=== PATIENT | male | born 1990 | race Caucasian/White ===

== ENCOUNTER 2020-01-18 13:07 | Emergency (ER) | payer BC, SELFPAY ==
[2020-01-18 13:14] VITALS: BP 141/96; PULSE 98; RESP 16; TEMP 37.2; O2SAT 96; BMI 38.7
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
[2020-01-18 14:42] VITALS: O2SAT 98
[2020-01-18] MEDS: predniSONE 20 mg Tablet 40 MG PO (15:31)
[2020-01-18] MEDS: valACYclovir 1,000 mg Tablet 1000 MG PO (15:33)
[2020-01-18 15:38] VITALS: BP 127/83; PULSE 83; RESP 16; O2SAT 99
== END 2020-01-18 15:38 | disposition home or self-care (01) ==
LOC: ER 14:52
PROVIDERS: Emergency Provider Emergency Medicine; PCP Nurse Practitioner Family
DX: G51.0 Bell's palsy (principal)
CPT/HCPCS: 12345; 99282; 99283; J7512

== ENCOUNTER 2022-01-30 22:09 | Inpatient (IN) | payer OTHER, SELFPAY ==
[2022-01-30 22:13] VITALS: BP 134/81; PULSE 76; RESP 16; TEMP 36.7; O2SAT 94; BMI 43.0
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
[2022-01-30 22:36] LABS: Basophils # 0.1 10^3/uL (0.0-0.1); Basophils % 0.9 %; Eosinophils # 0.1 10^3/uL (0.0-0.8); Eosinophils % 1.5 %; Hematocrit 47.7 % (42.0-52.0); Lymphocytes # 2.4 10^3/uL (0.8-4.8); Lymphocytes % 26.6 %; Mean Corpuscular HGB Conc 33.5 g/dL (30.0-36.0); Mean Corpuscular Hemoglobin 30.8 pg (28.0-34.0); Mean Corpuscular Volume 91.9 fl (80-94); Mean Platelet Volume 11.6 fL (7.4-10.4); Monocytes # 0.8 10^3/uL (0.2-0.9); Monocytes % 8.8 %; Neutrophils # 5.64 10^3/uL (1.8-7.7); Neutrophils % 62.1 %; Nucleated Red Blood Cells % 0 %; Platelet Count 292 10^3/cmm (130-400); Red Blood Count 5.19 10^6/uL (4.1-5.3); Red Cell Distribution Width 12.8 % (12.1-15.1); White Blood Count 9.1 10^3/uL (4.0-10.0)
[2022-01-30 22:58] LABS: Acetaminophen < 5.0 ug/mL (10-30); Alanine Aminotransferase 107 U/L (0-41); Albumin Level 4.6 g/dL (3.5-5.2); Alcohol Level < 10 mg/dL (0-10); Alkaline Phosphatase 80 IU/L (40-130); Anion Gap 17.1 (5-19); Aspartate Amino Transferase 50 U/L (0-40); Blood Urea Nitrogen 12 mg/dL (6-20); Calcium 9.8 mg/dL (8.5-10.5); Carbon Dioxide 22 mmol/L (22-29); Chloride 105 mmol/L (98-107); Globulin 2.8 g/dL (1.3-4.6); Glomerular Filtration Rate 97.8 mL/min (90-130); Glucose 157 mg/dL (65-115); Osmolality Calculated 293 mOsm/kg (285-295); Potassium 4.1 mmol/L (3.5-5.1); Salicylate < 0.3 mg/dL (3-10); Sodium 140 mmol/L (136-145); Total Bilirubin 0.3 mg/dL (0.15-1.2); Total Protein 7.4 g/dL (6.6-8.7)
[2022-01-30 23:39] LABS: Add Urine Microscopic? NO; Charge for UA Resulting for Rev
[2022-01-30 23:40] LABS: Bilirubin Urine 1+ (Negative); Blood Urine Neg (Negative); Glucose Urine UA Norm (Normal); Ketones Urine Negative (Negative); Leukocyte Esterase Urine Negative (Negative); Nitrate Urine Negative (Negative); Protein Urine Neg (Negative); Urine Appearance Clear (CLEAR); Urine Color Yellow (Yellow); Urobilinogen Urine 4 mg/dL (Negative); pH Urine 5 (5-7)
[2022-01-31 00:05] VITALS: BP 141/69; PULSE 87; RESP 18; TEMP 36.8; O2SAT 99
[2022-01-31 00:06] LABS: Amphetamines Screen Urine Negative (Negative); Barbiturates Screen Urine Negative (Negative); Benzodiazepines Screen Urine Negative (Negative); Cocaine Screen Urine Negative (Negative); Opiate Screen Urine Negative (Negative); PCP Screen Urine Negative (Negative); THC Screen Urine Negative (Negative)
[2022-01-31 00:20] VITALS: BP 154/92; PULSE 89; RESP 18; O2SAT 98
[2022-01-31] MEDS: prazosin 1 mg Capsule 2 MG PO ×2 (02:10→20:50)
[2022-01-31] MEDS: gabapentin 400 mg Capsule PO ×2 (02:10→20:51)
[2022-01-31 06:00] VITALS: BP 106/57; PULSE 93; RESP 20; TEMP 36.4; O2SAT 96
[2022-01-31] MEDS: duloxetine 30 mg Capsule PO ×2 (09:09→20:52)
[2022-01-31] MEDS: lamoTRIgine 100 mg Tablet PO ×2 (09:09→20:51)
[2022-01-31] MEDS: famotidine 20 mg Tablet PO ×2 (09:09→20:52)
--- NOTE | 2022-01-31 09:10 | PC.NURSE ---
refused scheduled Inderal pt stated he takes it once a day at noon
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
--- NOTE | 2022-01-31 11:21 | NPU.GN ---
[facility] Unit Group Topic:Positive Coping Skills General Mood of Group:Eduardo did not attend group today.
[2022-01-31 14:00] VITALS: BP 120/74; PULSE 72; RESP 16; TEMP 36.9; O2SAT 98
[2022-01-31] MEDS: gabapentin 400 mg Capsule 800 MG PO ×2 (15:07→20:51)
[2022-01-31] MEDS: propranolol 40 mg Tablet PO (20:51)
[2022-01-31 22:00] VITALS: BP 141/96; PULSE 74; RESP 19; TEMP 36.5; O2SAT 99
[2022-02-01 06:00] VITALS: BP 135/83; PULSE 66; RESP 18; TEMP 36.6; O2SAT 97
[2022-02-01] MEDS: gabapentin 400 mg Capsule 800 MG PO ×3 (09:26→20:43)
[2022-02-01] MEDS: famotidine 20 mg Tablet PO ×2 (09:26→20:44)
[2022-02-01] MEDS: propranolol 40 mg Tablet PO ×2 (09:26→20:44)
[2022-02-01] MEDS: duloxetine 30 mg Capsule PO ×2 (09:26→20:44)
[2022-02-01] MEDS: lamoTRIgine 100 mg Tablet PO ×2 (09:26→21:19)
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
[2022-02-01 14:00] VITALS: BP 104/61; PULSE 83; RESP 18; TEMP 36.7; O2SAT 98
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
[2022-02-01] MEDS: gabapentin 400 mg Capsule PO (20:43)
[2022-02-01] MEDS: prazosin 1 mg Capsule 2 MG PO (20:44)
[2022-02-01 21:37] VITALS: BP 124/77; PULSE 65; RESP 20; TEMP 36.7; O2SAT 94
[2022-02-02 06:00] VITALS: BP 110/63; PULSE 94; RESP 18; TEMP 36.7; O2SAT 97
[2022-02-02] MEDS: famotidine 20 mg Tablet PO ×2 (09:04→20:11)
[2022-02-02] MEDS: lamoTRIgine 100 mg Tablet PO ×2 (09:04→20:11)
[2022-02-02] MEDS: propranolol 40 mg Tablet PO ×2 (09:04→20:11)
[2022-02-02] MEDS: gabapentin 400 mg Capsule 800 MG PO ×3 (09:04→20:11)
[2022-02-02] MEDS: duloxetine 30 mg Capsule PO ×2 (09:04→20:11)
--- NOTE | 2022-02-02 12:13 | NPU.GN ---
[facility] Group Topic:Whine Barrel Activity General Mood of Group: Eduardo did attend group today. He was social and seems stable. His hygiene is good.
[2022-02-02 14:00] VITALS: BP 151/62; PULSE 60; RESP 18; TEMP 36.7; O2SAT 99
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
[2022-02-02] MEDS: gabapentin 400 mg Capsule PO (20:11)
[2022-02-02] MEDS: prazosin 1 mg Capsule 2 MG PO (20:12)
[2022-02-02 20:29] VITALS: BP 122/77; PULSE 57; RESP 20; O2SAT 96
[2022-02-03 06:00] VITALS: BP 109/67; PULSE 61; RESP 16; TEMP 36.4
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
[2022-02-03 08:31] VITALS: BP 109/67; PULSE 61; RESP 16; TEMP 36.4; O2SAT 96
--- NOTE | 2022-02-03 08:35 | PC.NURSE ---
Discharge note Patient discharge instructions given per physician orders. patient verbalized understanding. Patient to strip picker at npu.
[2022-02-03] MEDS: famotidine 20 mg Tablet PO (08:48)
[2022-02-03] MEDS: lamoTRIgine 100 mg Tablet PO (08:48)
[2022-02-03] MEDS: duloxetine 30 mg Capsule PO (08:48)
[2022-02-03] MEDS: propranolol 40 mg Tablet PO (08:48)
[2022-02-03] MEDS: gabapentin 400 mg Capsule 800 MG PO (08:48)
[2022-02-03 08:52] VITALS: BP 109/67; PULSE 61; RESP 16; TEMP 36.4; O2SAT 96
== END 2022-02-03 08:51 | disposition home or self-care (01) | DRG 882 ==
LOC: ER 22:35 → NP 01-31 02:34
PROVIDERS: Admitting Provider Psychiatry & Neurology Psychiatry; Emergency Provider Physician Assistant; PCP Nurse Practitioner Family; Visit Provider Psychiatry & Neurology Psychiatry
DX: F43.10 Post-traumatic stress disorder, unspecified (principal); R45.851 Suicidal ideations; X95.9XXA Assault by unspecified firearm discharge, initial encounter; Y99.0 Civilian activity done for income or pay; H93.13 Tinnitus, bilateral; H91.93 Unspecified hearing loss, bilateral; X95.9XXS Assault by unspecified firearm discharge, sequela
CPT/HCPCS: 80053; 80306; 80307; 81003; 85025; 97150; 97165; 99285